=== PATIENT | male | born 1985 | race Caucasian/White ===

== ENCOUNTER 2024-03-05 09:10 | Emergency (ER) | payer OTHER, SELFPAY ==
[2024-03-05 09:21] VITALS: BP 138/98; PULSE 75; RESP 16; TEMP 36.7; O2SAT 99
--- NOTE | 2024-03-05 09:48 | ED.GENADULT ---
HPI - General Adult General Chief complaint: Back Pain/Injury Stated complaint: pain in cervical spine Time Seen by Provider: 03/05/24 09:30 Source: patient and RN notes reviewed Mode of arrival: ambulatory Limitations: no limitations History of Present Illness HPI narrative: Patient presents today complaining of point tenderness to the right upper back area that started 2-3 days ago. No known injury or trauma. Denies numbness or tingling to the arm or hand. Reports some occasional radiation to the right biceps. He has used ice, occasional ibuprofen and icy Hot. Currently rates pain 6/10, which slightly increases when he lies down. Related Data Home Medications Medication Instructions Recorded Confirmed dextroamphetamine-amphetamine 20 03/05/24 mg tablet Allergies Allergy/AdvReac Type Severity Reaction Status Date / Time No Known Allergies Allergy Verified 03/05/24 09:24 Review of Systems Review of Systems: CONSTITUTIONAL: Denies body aches, fever, chills, or sweats. EYES: Denies visual changes, redness, or discharge. ENT: Denies rhinorrhea, congestion, sore throat, or otalgia. CARDIOVASCULAR: Denies chest pain, palpitations, or edema. RESPIRATORY: Denies cough or dyspnea. GASTROINTESTINAL: Denies abdominal pain, nausea, vomiting, or diarrhea. GENITOURINARY: Denies dysuria or hematuria. SKIN: Denies rash, itching, or wounds. MUSCULOSKELETAL: + right upper back pain NEUROLOGIC: Denies headache, numbness, tingling, or weakness. PSYCH: Denies depression or anxiety. PMFSH Comments At time of signature, I have reviewed and agree with nursing past medical, surgical, social and family history unless otherwise noted. Please see nursing chart for further information. There is no relevant family history pertinent to the presenting complaint Exam Narrative: GENERAL: Well-appearing, well-nourished, and in no acute distress. HEAD: Normocephalic, atraumatic. EYES: EOMI. No redness or drainage. Conjunctivae normal. ENT: Mucous membranes pink and moist. NECK: Normal AROM with increased pain with left lateral bending and left rotation. Neck is nontender. Point tenderness to small area of the mid right trapezius with palpable muscle spasm to this area to the right scapular border. Mild discomfort with movement of the right shoulder. Distal sensation intact. Capillary refill normal. Radial pulses normal. 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 CHEST: No respiratory distress. SKIN: Warm, dry, no rash. Capillary refill normal. Normal skin turgor. NEURO: No focal deficits. Alert and oriented x3. Gait steady. PSYCH: Normal affect. No signs of depression or anxiety. Course Course Level of Care: Express Care Visit Vital Signs Vital signs: Vital Signs Temperature 98.0 F 03/05/24 09:21 Pulse Rate 75 03/05/24 09:21 Respiratory Rate 16 03/05/24 09:21 Blood Pressure 138/98 H 03/05/24 09:21 Pulse Oximetry 99 03/05/24 09:21 Oxygen Delivery Room Air 03/05/24 09:21 Temperature 98.0 F 03/05/24 09:21 Pulse Rate 75 03/05/24 09:21 Respiratory Rate 16 03/05/24 09:21 Blood Pressure 138/98 H 03/05/24 09:21 Pulse Oximetry 99 03/05/24 09:21 Oxygen Delivery Room Air 03/05/24 09:21 Reviewed Medical Decision Making MDM Narrative Medical decision making narrative: Patient has a muscle spasm in his trapezius. He will be treated with prednisone and Flexeril. Recommend some mild stretching when symptoms have started to improve. Anticipatory guidance given. Differential Diagnosis Differential Diagnosis: Cervical strain, trapezius strain, acquired torticollis, cervical radiculopathy, muscle spasm Vital Signs Vital Signs: Vital Signs Temperature 98.0 F 03/05/24 09:21 Pulse Rate 75 03/05/24 09:21 Respiratory Rate 16 03/05/24 09:21 Blood Pressure 138/98 H 03/05/24 09:21 Pulse Oximetry 99 03/05/24 09:21 Oxygen Delivery Room Air 03/05/24 09:21 [place]
== END 2024-03-05 09:56 | disposition home or self-care (01) ==
PROVIDERS: Emergency Provider Nurse Practitioner
DX: M62.838 Other muscle spasm (principal)
CPT/HCPCS: 99213; G0463